=== PATIENT | male | born 2000 | race Caucasian/White ===

== ENCOUNTER 2023-08-09 04:29 | Emergency (ER) | payer BC ==
[2023-08-09] MEDS ORDERED: Lidocaine 1% PF 5 ML VIAL ONE (05:09)
[2023-08-09] MEDS ORDERED: Ketorolac Tromethamine 30 MG/ML VIAL ONE (05:27)
[2023-08-09] MEDS ORDERED: fentaNYL 50 mcg/mL 1 mL Vial ONE (05:27)
[2023-08-09] MEDS ORDERED: PROPOFOL 20 ML ONE (05:28)
== END 2023-08-09 06:52 | disposition home or self-care (01) ==
LOC: ERS 04:29
DX: S43.015A Anterior dislocation of left humerus, initial encounter (principal); X58.XXXA Exposure to other specified factors, initial encounter
CPT/HCPCS: 23650; 96374; 96375; 99152; J1885; J2704; J3010